=== PATIENT | male | born 1965 | race Caucasian/White ===

== ENCOUNTER 2024-09-14 09:05 | Outpatient (CLI) | payer OTHER, SELFPAY | END 2024-09-14 09:06 | disposition home or self-care (01) | LOC: INJ CL 09:08 | PROVIDERS: PCP Family Medicine; Visit Provider Family Medicine | DX: M54.16 Radiculopathy, lumbar region (principal); M51.360 Other intervertebral disc degeneration, lumbar region with discogenic back pain only | CPT/HCPCS: 62323; J0702; Q9966 ==

== ENCOUNTER 2025-01-22 13:40 | Outpatient (CLI) | payer OTHER, SELFPAY | END 2025-01-22 13:41 | disposition home or self-care (01) | LOC: INJ CL 13:41 | PROVIDERS: PCP Family Medicine; Visit Provider Family Medicine | DX: M54.16 Radiculopathy, lumbar region (principal); M51.360 Other intervertebral disc degeneration, lumbar region with discogenic back pain only | CPT/HCPCS: 62323; J0702; Q9966 ==

== ENCOUNTER 2025-03-05 07:22 | Outpatient (CLI) | payer OTHER, SELFPAY | END 2025-03-05 07:23 | disposition home or self-care (01) | LOC: INJ CL 07:24 | PROVIDERS: PCP Family Medicine; Visit Provider Family Medicine | DX: M47.816 Spondylosis without myelopathy or radiculopathy, lumbar region (principal) | CPT/HCPCS: 64493; 64494; J0702; Q9966 ==